=== PATIENT | male | born 1965 | race Caucasian/White ===

== ENCOUNTER 2017-05-17 13:40 | Emergency (ER) | payer BC ==
[~2017-05-17] VITALS: Ht 175.3 cm; Wt 85.8 kg
[~2017-05-17 13:40] MED LIST: ASPIR-LOW81 MG PO; ATORVASTATIN CA80 MG PO; BRILINTA90 MG PO; LEVOFLOXACIN750 MG PO; METOPROLOL TART25 MG PO; NITROSTAT0.4 MG SL; PROTONIX40 MG PO
[2017-05-17 14:52] LABS: HEMATOCRIT 45.7 % (38.0-50.0); MCV 84.6 FL (86-99); MEAN PLAT.VOLUME 9.9 uM^3 (9.0-12.4); PLATELET COUNT 180 K/uL (156-360); RBC DIS.WIDTH-CV 13.5 % (11.8-14.6); RBC DIS.WIDTH-SD 41.7 % (39-53); WHITE BLOOD COUNT 9.2 K/uL (4.1-10.2)
[2017-05-17 15:00] LABS: PROTHROMBIN TIME 11.1 SEC (10.2-12.9)
[2017-05-17 15:01] LABS: CHLORIDE 110 mEq/L (99-109); POTASSIUM 3.9 mEq/L (3.7-5.4); SODIUM 144 mEq/L (136-147)
[2017-05-17 15:02] LABS: GLUCOSE 88 mg/dL (70-99)
[2017-05-17 15:03] LABS: PTT 30.3 SEC (25-37)
[2017-05-17 15:04] LABS: ANION GAP 10 MEQ/L (2-14)
[2017-05-17 15:06] LABS: GFR ESTIMATE (CALCULATED) > 59 mL/min/
[2017-05-17 15:07] LABS: UREA NITROGEN (BUN) 11 mg/dL (9-23)
[2017-05-17 15:15] LABS: TROP-I INTERPRETATION NEGATIVE; TROPONIN-I < 0.01 ng/mL (0.0-0.30)
[2017-05-17 16:35] VITALS: BP 114/90
== END 2017-05-17 16:36 | disposition left against medical advice (07) ==
LOC: EME 13:40
PROVIDERS: Emergency Medicine
DX: R07.9 Chest pain, unspecified (principal); I25.10 Atherosclerotic heart disease of native coronary artery without angina pectoris; I25.2 Old myocardial infarction; K21.9 Gastro-esophageal reflux disease without esophagitis; E78.5 Hyperlipidemia, unspecified; Z95.5 Presence of coronary angioplasty implant and graft; Z79.82 Long term (current) use of aspirin; Z72.0 Tobacco use
CPT/HCPCS: 71020; 80048; 84484; 85027; 85610; 85730; 93005; 99281; 99284